=== PATIENT | female | born 1965 | race Caucasian/White ===

== ENCOUNTER 2018-02-08 19:16 | Emergency (ER) | payer OTHER, MEDICAID ==
[~2018-02-08] VITALS: Ht 165.1 cm; Wt 112.9 kg
[2018-02-08 22:15] VITALS: BP 137/70
== END 2018-02-08 23:24 | disposition home or self-care (01) ==
LOC: ER 19:16
DX: J40 Bronchitis, not specified as acute or chronic (principal); E11.9 Type 2 diabetes mellitus without complications; E78.5 Hyperlipidemia, unspecified; I10 Essential (primary) hypertension
CPT/HCPCS: 71045

== ENCOUNTER 2018-03-02 10:39 | Emergency (ER) | payer MEDICARE, MEDICAID ==
[~2018-03-02] VITALS: Ht 165.1 cm; Wt 112.9 kg
[2018-03-02 10:59] VITALS: BP 132/71
== END 2018-03-02 13:28 | disposition home or self-care (01) ==
LOC: ER 10:45
DX: E11.9 Type 2 diabetes mellitus without complications (principal); I10 Essential (primary) hypertension; E78.5 Hyperlipidemia, unspecified; Z76.0 Encounter for issue of repeat prescription; Z79.4 Long term (current) use of insulin; Z88.0 Allergy status to penicillin